=== PATIENT | male | born 1945 | race Caucasian/White ===

== ENCOUNTER → 2017-06-29 | Outpatient (CLI) | payer MEDICARE, OTHER ==
[~2017-06-29] MED LIST: ALPH50TA7 PO; AZIT-1 PO; BIMA2.5D5; CHOL400C10 PO; CLAR250T35 PO; CYA1000 PO; CYAN1TAB68 PO; DEXA0.5T15 PO; FLU60SYR30 IM ONLY; GLAUCOMA EYE DROPS; GLUC100026 PO; HYAL1CAP PO; HYDR-2966 PO; KET10 PO; LOR5/325 PO; OMEG-23 PO; PANT40SU3 PO; PNEU0.5D3 IM; PRED20TA6 PO; PYRI25TA18 PO; THIA100T2 PO; UBID100C9 PO
== END ==
LOC: LAB 15:16
PROVIDERS: ATTEND Internal Medicine Medical Oncology
DX: C90.00 Multiple myeloma not having achieved remission (principal)
CPT/HCPCS: 36415; 82040; 82247; 82310; 82374; 82435; 82565; 82947; 83883; 84075; 84132; 84155; 84160; 84165; 84295; 84450; 84460; 84520; 85027

== ENCOUNTER → 2018-01-04 | Outpatient (CLI) | payer MEDICARE, OTHER ==
[2018-01-04 12:13] LABS: PLATELET COUNT, AUTOMATED 220 K/uL (150-450)
== END ==
LOC: LAB 11:48
PROVIDERS: ATTEND Internal Medicine Medical Oncology
DX: C90.00 Multiple myeloma not having achieved remission (principal)
CPT/HCPCS: 36415; 82040; 82247; 82310; 82374; 82435; 82565; 82947; 83883; 84075; 84132; 84155; 84160; 84165; 84295; 84450; 84460; 84520; 85025

== ENCOUNTER → 2018-05-12 | Outpatient (REF) | payer MEDICARE, OTHER | LOC: ZZSENDIN 12:00 | PROVIDERS: ATTEND Orthopaedic Surgery | DX: M67.431 Ganglion, right wrist (principal) | CPT/HCPCS: 88305 ==

== ENCOUNTER → 2018-06-07 | Outpatient (CLI) | payer MEDICARE, OTHER ==
[~2018-06-07] MED LIST changes: +VITA1CAP46 PO
[2018-06-07 09:49] LABS: PLATELET COUNT, AUTOMATED 227 K/uL (150-450)
[2018-06-07 10:26] LABS: LDL CHOLESTEROL 107 mg/dl
== END ==
LOC: LAB 09:24
PROVIDERS: ATTEND Internal Medicine
DX: G62.9 Polyneuropathy, unspecified (principal); I10 Essential (primary) hypertension; C90.00 Multiple myeloma not having achieved remission
CPT/HCPCS: 36415; 81001; 84443; 85025; G0103; 82040; 82247; 82310; 82374; 82435; 82465; 82565; 82947; 83718; 84075; 84132; 84153; 84155; 84295; 84450; 84460; 84478; 84520

== ENCOUNTER → 2018-07-04 | Outpatient (CLI) | payer MEDICARE, OTHER | LOC: LAB 15:24 | PROVIDERS: ATTEND Internal Medicine Medical Oncology | DX: C90.00 Multiple myeloma not having achieved remission (principal) | CPT/HCPCS: 82040; 82232; 82247; 82310; 82374; 82435; 82565; 82947; 83883; 84075; 84132; 84155; 84165; 84295; 84450; 84460; 84520; 85027 ==

== ENCOUNTER → 2018-07-04 | Outpatient (CLI) | payer MEDICARE, OTHER | LOC: LAB 15:03 | PROVIDERS: ATTEND Internal Medicine | DX: C90.00 Multiple myeloma not having achieved remission (principal) | CPT/HCPCS: 36415; 82607; 82746; 83036 ==